=== PATIENT | female | born 1985 | race American Indian/Alaskan Native ===

== ENCOUNTER 2019-12-21 14:14 | Inpatient (IN) | payer SELFPAY ==
[2019-12-21] MEDS ORDERED: AMPICILLIN/NS 2 GM/100 ML 2 GM/100 ML BAG IV ONE (14:23)
[2019-12-21] MEDS ORDERED: BUTORPHANOL 2 MG/1 ML INJ IV PRN (14:23)
[2019-12-21] MEDS ORDERED: ePHEDrine SULFATE 50 MG/1 ML INJ IV PRN (14:23)
[2019-12-21] MEDS ORDERED: MINERAL OIL 30 ML ORAL LIQD PO PRN (14:23)
[2019-12-21] MEDS ORDERED: NalbUPHINE 10 MG/1 ML INJ IV PRN (14:23)
[2019-12-21] MEDS ORDERED: TERBUTALINE 1 MG/1 ML INJ IVP PRN (14:23)
[2019-12-21] MEDS ORDERED: LIDOCAINE (2%) 20 MG/1 ML VIAL 20 ML MDV INFILTRATI ONE (14:23)
[2019-12-21] MEDS ORDERED: fentaNYL 100 MCG/2 ML INJ IV PRN (14:23)
[2019-12-21] MEDS ORDERED: TERBUTALINE 1 MG/1 ML INJ SUB-Q PRN (14:23)
[2019-12-21] MEDS ORDERED: OXYTOCIN 20 UNIT/1000ML DRIP 20 UNITS/1,000 ML BAG IV SCH (15:00)
[2019-12-21] MEDS ORDERED: LACTATED RINGERS 1,000 ML IV SCH (15:00)
[2019-12-21] MEDS ORDERED: OXYTOCIN DRIP 30 UNITS/500 ML BAG IV SCH (15:00)
[2019-12-21 16:29] LABS: Amphetamine Screen,Urine PRESUMPTIVE NEGATIVE; Benzodiazepines Screen,Urine PRESUMPTIVE NEGATIVE; Cannabinoid Screen,Urine PRESUMPTIVE NEGATIVE; Cocaine Screen,Urine PRESUMPTIVE NEGATIVE; Methadone Screen,Urine PRESUMPTIVE NEGATIVE; Opiate Screen,Urine PRESUMPTIVE NEGATIVE
--- NOTE | 2019-12-21 16:46 | Ultrasound Report ---
ULTRASOUND BIOPHYSICAL PROFILE INDICATION: wellbeing. COMPARISON: None available. FINDINGS: breathing movement = 2 Gross body movement = 2 tone = 2 Qualitative amniotic fluid volume = 2 Total biophysical score = 06/14 Amniotic fluid index is 12.0 cm. Presentation is Cephalic. heart rate is 124 beats per minute. IMPRESSION: biophysical profile = 06/14 Signer Name: Juan Ramon Verma MD Signed: 12/21/2019 4:41 PM Workstation Name: [id number]
[2019-12-21 16:54] LABS: Basophils # (Auto) 0.1 K/mm3 (0.0-0.1); Basophils % (Auto) 0.7 % (0.0-1.8); Eosinophils # (Auto) 0.1 K/mm3 (0.0-0.4); Eosinophils % (Auto) 0.6 % (0.0-4.3); Hematocrit 31.9 % (30.3-42.9); Lymphocytes % (Auto) 22.5 % (13.4-35.0); Mean Corpuscular HGB Conc 32 % (30-34); Mean Corpuscular Volume 75 fl (79-97); Monocytes # (Auto) 0.9 K/mm3 (0.0-0.8); Monocytes % (Auto) 9.7 % (0.0-7.3); Platelet Count 289 K/mm3 (140-440); Red Blood Count 4.24 M/mm3 (3.65-5.03); Red Cell Distribution Width 16.8 % (13.2-15.2)
[2019-12-21 17:23] LABS: Hepatitis C Virus Antibody Non-Reactive (NonReactive)
[2019-12-21 18:15] VITALS: BP 133/58
[2019-12-21] MEDS ORDERED: AMPICILLIN/NS 1 GM/50 ML 1 GM/50 ML BAG IV SCH (18:28)
--- NOTE | 2019-12-22 09:57 | Short Stay Summary ---
Short Stay Documentation Date of service: 12/21/19 Narrative H&P: Pt is a 34 year old who presented to triage at 39.3 weeks with complaint of contractions.Pt is visiting [place] from [place]. Pt states that she receives care in [place]. - History Principal diagnosis: Labor Past Medical History: No medical history Past Surgical History: No surgical history Social history: single - Allergies and Medications Current Medications: Allergies No Known Allergies Allergy (Unverified 12/21/19 14:21) Active Medications Butorphanol Tartrate (Stadol) 1 mg IV Q2H PRN PRN Reason: Pain, Moderate (4-6) Ephedrine Sulfate (Ephedrine Sulfate) 10 mg IV Q2M PRN PRN Reason: Hypotension Fentanyl (Sublimaze) 100 mcg IV Q2H PRN PRN Reason: Labor Pain Oxytocin/Sodium Chloride (Pitocin/Ns 20 Unit/1000ml Drip) 20 units in 1,000 mls @ 125 mls/hr IV DIRECT RIN Oxytocin/Sodium Chloride (Pitocin/Ns 30 Unit/500ml) 30 units in 500 mls @ 1 mls/hr IV TITR RIN; Protocol Lactated Ringer's (Lactated Ringers) 1,000 mls @ 125 mls/hr IV DIRECT RIN Ampicillin Sodium (Ampicillin/Ns 1 Gm/50 Ml) 1 gm in 50 mls @ 100 mls/hr IV Q4HR RIN; Protocol Mineral Oil (Mineral Oil) 30 ml PO QHS PRN PRN Reason: Constipation Nalbuphine HCl (Nalbuphine) 10 mg IV Q2H PRN PRN Reason: Pain, Moderate (4-6) Terbutaline Sulfate (Brethine) 0.25 mg SUB-Q ONCE PRN PRN Reason: Hyperstimulation/Hypertonicity Terbutaline Sulfate (Brethine) 0.25 mg IVP ONCE PRN PRN Reason: Hyperstimulation/Hypertonicity - Physical exam General appearance: no acute distress Breasts: deferred Heart: Regular rate, Normal S1, Normal S2 Female Genitourinary: other (6) - Hospital course Hospital course: Pt was evaluated in triage and was reported to be 5-6 cm dilated with contractions every 6 minutes. After iv fluids were initiated, the contractions spaced out to every 15-20 minutes. I was asked to re-evaluate cervical exam and the found the patient to be actually dilated 2cm at the internal os with a soft multiparous cervix. In light of that finding and the markedly decreased uterine activity. The decision was made to discharge the patient as she was not in active labor. - Disposition Condition at discharge: Good Disposition: DC-01 TO HOME OR SELFCARE Short Stay Discharge Plan Activity: no restrictions (follow up with ob in [place]) Diet: regular Follow up with: PRIMARY CARE, [Referring] - 7 Days
== END 2019-12-21 18:35 | disposition home or self-care (01) | DRG 833 ==
LOC: TRG 14:14 → LD 14:14 → TRG 14:15 → LD 15:07
PROVIDERS: ADMIT Obstetrics & Gynecology; ATTEND Obstetrics & Gynecology
DX: O62.8 Other abnormalities of forces of labor (principal); Z3A.39 39 weeks gestation of pregnancy
CPT/HCPCS: 36415; 76815; 76819; 80307; 82106; 85025; 85660; 86592; 86706; 86762; 86803; 86850; 86900; 86901; 87806; G0378; J7120